=== PATIENT | male | born 1985 | race Caucasian/White ===

== ENCOUNTER 2017-11-26 11:57 | Emergency (ER) | payer MEDICAID, OTHER ==
[~2017-11-26] VITALS: Ht 172.7 cm; Wt 63.5 kg
[~2017-11-26 11:57] MED LIST: ALPR.5T; ALPR.5T PO; CARB100T; CEFP500T4 PO; CLIN300C3 PO; CYCL10TA9 PO; HYDR-2997 PO; HYDR1TAB PO; LTRS15C TOP; NAPR-243 PO; NAPR550T PO; ORPH100T PO; PRD10T PO; PROP1TAB77 PO; QUET150T; QUET150T PO; TRM50T; TRM50T PO
[2017-11-26] MEDS ORDERED: CODE118S2 PO (12:15)
[2017-11-26] MEDS ORDERED: OSLT75C PO (12:15)
--- NOTE | 2017-11-26 12:15 | ED EENT ---
History of Present Illness General Chief Complaint: Pediatric Illness/Problems Stated Complaint: FEVER, CONGESTION Source: patient Exam Limitations: no limitations History of Present Illness Date Seen by Provider: Nov 26, 2017 Time Seen by Provider: 12:11 Initial Comments To ER with a 2 day history of fever, body aches, sore throat, cough. He's been taking some leftover clindamycin from a dental infection thinking that might help. His father tested positive for influenza earlier this past week and he's been around him. Timing/Duration: abrupt Severity: moderate Associated Symptoms: cough, fever, nasal congestion/drainage Allergies and Home Medications Allergies Coded Allergies: Acetaminophen (Unverified Allergy, Mild, 12/20/09) Penicillins (Unverified Allergy, Mild, 04/20/09) Propoxyphene (Unverified Allergy, Mild, 12/20/09) Uncoded Allergies: IVORY SOAP (Allergy, Mild, 04/20/09) DARVOCET (Allergy, 05/25/10) PENICILLIN (Allergy, 05/25/10) Home Medications Clindamycin Hcl 300 Mg Capsule, 1 TAB PO BID, (Reported) Naproxen 500 Mg Tablet, 1 EACH PO TID PRN, #20 Ref 0 FOR PAIN Prescribed by: JOSE ANGEL LARSON on 01/20/11 0044 Review of Systems Constitutional: see HPI, chills, fever, malaise, weakness Eyes: No Symptoms Reported Ears: See HPI Nose: no symptoms reported Mouth: no symptoms reported Throat: no symptoms reported Respiratory: no symptoms reported Cardiovascular: no symptoms reported Musculoskeletal: no symptoms reported Past Yufzmur-Ajqeaj-Qqlfwd Hx Patient Social History Recent Foreign Travel: No Contact w/Someone Who Travel: No Physical Exam General Appearance: WD/WN, no apparent distress Eyes: bilateral eye normal inspection, bilateral eye PERRL, bilateral eye EOMI Ears: bilateral ear auricle normal, bilateral ear canal normal, bilateral ear TM normal Mouth/Throat: normal mouth inspection, other (pharyngeal erythema) Neck: non-tender, full range of motion Cardiovascular: regular rate, rhythm, no murmur Respiratory: normal breath sounds, no respiratory distress, no accessory muscle use Gastrointestinal: normal bowel sounds, non tender, soft Neurologic/Psychiatric: alert, normal mood/affect, oriented x 3 Skin: normal color, warm/dry Departure Impression Impression: Primary Impression: Influenza Disposition: 01 HOME, SELF-CARE Condition: Stable Departure-Patient Inst. Decision time for Depature: 12:13 Referrals: [facility] (PCP/Family) Primary Care Physician Patient Instructions: Flu, Adult (DC) Add. Discharge Instructions: 1. Tylenol and Motrin for fever and chills 2. Symptoms persisted for about 5-7 days with this. Drink plenty of fluids to stay hydrated 3. You may stop the clindamycin as this will not help 4. Tamiflu as directed. This may cause nausea so if it causes intolerable nausea than simply stop taking the Tamiflu. All discharge instructions reviewed with patient and/or family. Voiced understanding. Scripts Promethazine HCl/Codeine (Promethazine-Codeine Syrup) 118 Ml Syrup 7.5 ML PO Q6H Y for COUGH, #120 ML Prov: CARMEN VALDOVINOS APRN 11/26/17 Oseltamivir Phosphate (Tamiflu) 75 Mg Cap 75 MG PO BID, #10 CAP Prov: CARMEN VALDOVINOS APRN 11/26/17 CARMEN VALDOVINOS APRN Nov 26, 2017 12:15
[2017-11-26 12:20] VITALS: BP 118/80
== END 2017-11-26 12:20 | disposition home or self-care (01) ==
LOC: EDUNIT# 11:57 → ER 11:59
DX: J11.1 Influenza due to unidentified influenza virus with other respiratory manifestations (principal); Z88.2 Allergy status to sulfonamides; Z88.6 Allergy status to analgesic agent
CPT/HCPCS: 99282

== ENCOUNTER 2018-08-17 12:06 | Emergency (ER) | payer SELFPAY ==
[~2018-08-17] VITALS: Ht 180.3 cm; Wt 59.0 kg
[~2018-08-17 12:06] MED LIST changes: +CODE118S4 PO; +OSLT75C PO
[2018-08-17] MEDS ORDERED: HYDR-4226 PO ×2 (13:04→13:57)
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
[2018-08-17 14:59] VITALS: BP 129/82
[2018-08-17] MEDS ORDERED: HYDROcodone/APAP 5 MG/325 MG (LORTAB) TAB PO ONE (15:00)
== END 2018-08-17 14:59 | disposition home or self-care (01) ==
LOC: EDUNIT# 12:06 → ER 12:07
DX: S22.42XA Multiple fractures of ribs, left side, initial encounter for closed fracture (principal); F17.210 Nicotine dependence, cigarettes, uncomplicated; Z88.6 Allergy status to analgesic agent; Z88.0 Allergy status to penicillin; Z88.8 Allergy status to other drugs, medicaments and biological substances; Y04.8XXA Assault by other bodily force, initial encounter
CPT/HCPCS: 71101

== ENCOUNTER 2018-08-21 12:12 | Emergency (ER) | payer SELFPAY ==
[~2018-08-21] VITALS: Ht 180.3 cm; Wt 61.2 kg
[~2018-08-21 12:12] MED LIST changes: +HYDR-4226 PO
[2018-08-21] MEDS ORDERED: HYDROcodone/APAP 10 MG/325 MG (LORTAB) TAB PO ONE (13:30)
[2018-08-21] MEDS ORDERED: KETOROLAC 60 MG/2 ML VIAL IM ONE (13:30)
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
[2018-08-21 15:07] VITALS: BP 130/99
== END 2018-08-21 15:07 | disposition home or self-care (01) ==
LOC: EDUNIT# 12:12 → ER 12:13
DX: R07.81 Pleurodynia (principal); F17.210 Nicotine dependence, cigarettes, uncomplicated; Z88.6 Allergy status to analgesic agent; Z88.0 Allergy status to penicillin; Z88.8 Allergy status to other drugs, medicaments and biological substances; Y04.8XXA Assault by other bodily force, initial encounter
CPT/HCPCS: 71101; 96372

== ENCOUNTER 2019-01-30 20:07 | Inpatient (IN) | payer SELFPAY ==
[~2019-01-30] VITALS: Ht 175.3 cm; Wt 66.8 kg
--- NOTE | 2019-01-30 20:07 | NUR ---
LEVEL II TRAUMA PAGED.
--- NOTE | 2019-01-30 20:11 | NUR ---
UPGRADED TO LEVEL 1 TRAUMA. PAGE SENT @ 2010.
[2019-01-30] MEDS ORDERED: fentaNYL INJECTION 100 MCG/2 ML AMP ONE ×2 (20:13→20:25)
[2019-01-30] MEDS ORDERED: NS IV 1000 ML 1,000 ML ONE (20:25)
[2019-01-30] MEDS ORDERED: HOLD METFORMIN - RECEIVED CONTRAST 20 ML VIAL IV SCH (20:30)
[2019-01-30] MEDS ORDERED: IOHEXOL 350 MG/ML 100 ML (OMNIPAQUE 350) VIAL IV ONE (20:30)
[2019-01-30] MEDS ORDERED: TETANUS,DIPTH,PERTUSS P/F (BOOSTRIX) 0.5 ML VIAL IM ONE (20:30)
[2019-01-30 20:32] LABS: HEMOGLOBIN 15.3 G/DL (13.3-17.7); MEAN PLATELET VOLUME 9.7 FL (7.4-10.4); RED CELL DISTRIBUTION WIDTH 12.7 % (10.0-14.5); WHITE BLOOD COUNT 16.1 10^3/uL (4.3-11.0)
[2019-01-30 20:46] LABS: ALANINE AMINOTRANSFERASE 29 U/L (0-55); ALBUMIN 4.6 GM/DL (3.2-4.5); ALKALINE PHOSPHATASE 75 U/L (40-136); BILIRUBIN,DIRECT 0.2 MG/DL (0.0-0.3); BILIRUBIN,INDIRECT 0.4 MG/DL; BILIRUBIN,TOTAL 0.6 MG/DL (0.1-1.0); BUN/CREATININE RATIO 11; CALCIUM 9.7 MG/DL (8.5-10.1); CARBON DIOXIDE 21 MMOL/L (21-32); CHLORIDE 106 MMOL/L (98-107); CREATININE SERUM 1.18 MG/DL (0.60-1.30); GFR ESTIMATED > 60; GLUCOSE 155 MG/DL (70-105); POTASSIUM 3.4 MMOL/L (3.6-5.0); SODIUM 140 MMOL/L (135-145); TOTAL PROTEIN 7.3 GM/DL (6.4-8.2)
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
--- NOTE | 2019-01-30 21:10 | NUR ---
WHILE TRANSFERRING PT FROM CT TABLE TO ED CART, 18G IV TO LT AC PULLED OUT. PRESSURE APPLIED.
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
[2019-01-30] MEDS ORDERED: ONDANSETRON 4 MG/2 ML (SDV) Z0FRAN ONE (21:13)
[2019-01-30] MEDS ORDERED: HYDROmorphone 2 MG/ML VIAL (DILAUDID) IV ONE ×2 (21:15→22:15)
[2019-01-30] MEDS ORDERED: ONDANSETRON 4 MG/2 ML (SDV) Z0FRAN IVP ONE (21:15)
[2019-01-30] MEDS ORDERED: HYDROmorphone 2 MG/ML VIAL (DILAUDID) ONE (21:15)
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
[2019-01-30] MEDS ORDERED: BACITRACIN OINTMENT 28 GM TUBE ONE (21:43)
[2019-01-30] MEDS: BACITRACIN OINTMENT 28 GM TUBE TOP SCH (21:50)
--- NOTE | 2019-01-30 21:50 | NUR ---
MULTIPLE ABRASIONS CLEANED WITH CHLORHEXIDINE AND NORMAL SALINE. TOPICAL BACITRACIN APPLIED.
--- NOTE | 2019-01-30 22:00 | NUR ---
CERVICAL COLLAR CLEARED BY DR. BELL.
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
[2019-01-30] MEDS ORDERED: LIDOCAINE/EPI 2% 1:100,00 (XYLOCAINE) 20 ML VIAL ONE (22:27)
[2019-01-30] MEDS ORDERED: CLINDAMYCIN 900 MG/50 ML IVPB 50 ML IV ONE (23:00)
[2019-01-31] VITALS (27 sets, daily range): BP systolic 109–136; BP diastolic 77–96
[2019-01-31] MEDS ORDERED: morphine INJ 10 MG/ML 1ML (SYR OR VIAL) ONE (00:01)
[2019-01-31] MEDS: morphine INJ 10 MG/ML 1ML (SYR OR VIAL) IVP PRN ×7 (00:15→19:54)
[2019-01-31] MEDS ORDERED: morphine INJ 4 MG/ML 1 ML (VIAL/SYRINGE) IV PRN (00:30)
[2019-01-31] MEDS: NS IV 1000 ML 1,000 ML IV SCH ×4 (02:13→22:34)
[2019-01-31 03:53] LABS: BASOPHILS % (AUTO) 0 % (0-10); EOSINOPHILS % (AUTO) 0 % (0-10); HEMATOCRIT 42 % (40-54); HEMOGLOBIN 14.9 G/DL (13.3-17.7); LYMPHOCYTES # (AUTO) 0.9 X 10^3 (1.0-4.0); LYMPHOCYTES % (AUTO) 5 % (12-44); MEAN CORPUSCULAR HEMOGLOBIN 31 PG (25-34); MEAN CORPUSCULAR HGB CONC 35 G/DL (32-36); MEAN CORPUSCULAR VOLUME 89 FL (80-99); MEAN PLATELET VOLUME 10.4 FL (7.4-10.4); MONOCYTES # (AUTO) 1.9 X 10^3 (0.0-1.0); MONOCYTES % (AUTO) 10 % (0-12); NEUTROPHILS % (AUTO) 85 % (42-75); PLATELET COUNT 197 10^3/uL (130-400); RED CELL DISTRIBUTION WIDTH 12.8 % (10.0-14.5); WHITE BLOOD COUNT 18.9 10^3/uL (4.3-11.0)
[2019-01-31 04:12] LABS: BUN/CREATININE RATIO 16; CALCIUM 9.2 MG/DL (8.5-10.1); CARBON DIOXIDE 20 MMOL/L (21-32); CHLORIDE 109 MMOL/L (98-107); GFR ESTIMATED > 60; GLUCOSE 100 MG/DL (70-105); PHOSPHORUS 3.6 MG/DL (2.3-4.7); POTASSIUM 4.4 MMOL/L (3.6-5.0); SODIUM 138 MMOL/L (135-145)
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
[2019-01-31] MEDS ORDERED: RT-ALBUTEROL/IPRATROPIUM 3 ML (DUONEB) VIAL ONE (06:11)
[2019-01-31] MEDS: MAGNESIUM 1 GM/100 ML IVPB 100 ML IV SCH (06:42)
[2019-01-31] MEDS: KCL 20 MEQ TAB (K-DUR) PO SCH (06:42)
[2019-01-31] MEDS: POTASSIUM CL 10MEQ/50ML IVPB 50 ML IV SCH (06:42)
[2019-01-31] MEDS: RT-ALBUTEROL/IPRATROPIUM 3 ML (DUONEB) VIAL INH SCH ×4 (06:45→18:30)
[2019-01-31] MEDS ORDERED: NS IV 1000 ML 1,000 ML IV ONE (06:45)
[2019-01-31] MEDS: CLINDAMYCIN 900 MG/50 ML IVPB 50 ML IV SCH ×3 (06:55→23:15)
[2019-01-31] MEDS ORDERED: CLINDAMYCIN 900 MG/6ML (CLEOCIN) VIAL IV SCH (07:00)
--- NOTE | 2019-01-31 08:46 | Diagnostic Imaging Report ---
EXAMINATION: Portable semierect AP chest at 0034 hours. INDICATION: Chest pain. FINDINGS: The heart size is within normal limits and stable when compared to the prior exam of 01/30/2019. The previous study did show multiple rib fractures on the right, a slightly displaced fracture of the right clavicle, and a fracture extending through the lateral margin of the scapula just inferior to the glenoid. Those injuries are again evident on this study and no different. In the interval since the previous exam, however, a vague area of increased density has developed in the right midlung. Most likely, this is secondary to a pulmonary contusion. There is still no sign of a pneumothorax on the right. The left lung remains clear. The mediastinum is not widened. The osseous structures are otherwise intact. The stomach is now distended by gas. IMPRESSION: 1. In the interval since the prior study, a vague area of increased density has developed in the right mid lung. Most likely, this is due to a pulmonary contusion. There is still no pneumothorax identified. 2. No other acute cardiopulmonary abnormality is appreciated. 3. The injuries to the bony thorax, scapula, and clavicle on the right are again noted. Dictated by: Dictated on workstation # [id number]
--- NOTE | 2019-01-31 08:51 | Diagnostic Imaging Report ---
INDICATION: Trauma. FINDINGS: The patchy airspace opacities in the right upper lung have improved from the prior exam. Fractures of the right scapula and mid shaft clavicle are redemonstrated. The rib fracture deformity shows no obvious change. There is no pneumothorax and no substantial pleural fluid is apparent. IMPRESSION: Improvement in airspace opacity in the right lung suggesting partial clearing of contusions. The right-sided fracture deformity shows no change. No appreciable pneumothorax. No adverse development. Dictated by: Dictated on workstation # [id number]
[2019-01-31] MEDS ORDERED: RT-ALBUTEROL/IPRATROPIUM 3 ML (DUONEB) VIAL INH SCH (09:00)
[2019-01-31 09:58] LABS: BILIRUBIN,URINE NEGATIVE (NEGATIVE); CLARITY,URINE CLEAR; COLOR,URINE YELLOW; GLUCOSE, URINE (UA) NEGATIVE (NEGATIVE); KETONES,URINE 1+ (NEGATIVE); LEUKOCYTE ESTERASE ,URINE NEGATIVE (NEGATIVE); NITRITE,URINE NEGATIVE (NEGATIVE); PH,URINE 5 (5-9); PROTEIN,URINE 2+ (NEGATIVE); UROBILINOGEN,URINE NORMAL (NORMAL)
[2019-01-31 10:14] LABS: RBC,URINE RARE /HPF
[2019-01-31 10:15] LABS: BACTERIA,URINE NEGATIVE /HPF; SQUAMOUS EPITHELIAL CELL,UR RARE /HPF
[2019-01-31 10:17] LABS: AMPHETAMINE SCREEN, URINE POSITIVE (NEGATIVE); BARBITURATE SCREEN URINE NEGATIVE (NEGATIVE); BENZODIAZEPINES SCREEN URINE NEGATIVE (NEGATIVE); CANNABINOID SCREEN, URINE POSITIVE (NEGATIVE); COCAINE SCREEN URINE NEGATIVE (NEGATIVE); METHADONE STAT NEGATIVE (NEGATIVE); METHAMPHETAMINE SCREEN URINE S POSITIVE (NEGATIVE); OPIATE SCREEN URINE POSITIVE (NEGATIVE); OXYCODONE STAT NEGATIVE (NEGATIVE); PROPOXYPHENE STAT NEGATIVE (NEGATIVE); TRICYCLIC ANTIDEPRESSANTS SCRE NEGATIVE (NEGATIVE)
[2019-01-31] MEDS: ONDANSETRON 4 MG/2 ML (SDV) Z0FRAN IV PRN (11:01)
--- NOTE | 2019-01-31 14:18 | NUR ---
Bacitracin ointment applied to abrasions on face, right shoulder, right flank and back of head laceration.
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
[2019-01-31] MEDS: BACITRACIN OINTMENT 28 GM TUBE TOP SCH (22:34)
[2019-02-01] VITALS (15 sets, daily range): BP systolic 102–139; BP diastolic 75–90
[2019-02-01] MEDS: ONDANSETRON 4 MG/2 ML (SDV) Z0FRAN IV PRN ×3 (00:50→23:52)
[2019-02-01] MEDS: morphine INJ 10 MG/ML 1ML (SYR OR VIAL) IVP PRN ×4 (00:51→17:22)
[2019-02-01] MEDS: NS IV 1000 ML 1,000 ML IV SCH ×3 (00:52→17:22)
[2019-02-01 03:07] LABS: BASOPHILS % (AUTO) 0 % (0-10); EOSINOPHILS # (AUTO) 0.1 10^3/uL (0.0-0.3); EOSINOPHILS % (AUTO) 1 % (0-10); HEMATOCRIT 40 % (40-54); HEMOGLOBIN 13.4 G/DL (13.3-17.7); LYMPHOCYTES # (AUTO) 0.7 X 10^3 (1.0-4.0); LYMPHOCYTES % (AUTO) 6 % (12-44); MEAN CORPUSCULAR HEMOGLOBIN 31 PG (25-34); MEAN CORPUSCULAR HGB CONC 34 G/DL (32-36); MEAN CORPUSCULAR VOLUME 91 FL (80-99); MEAN PLATELET VOLUME 9.8 FL (7.4-10.4); MONOCYTES % (AUTO) 9 % (0-12); NEUTROPHILS # (AUTO) 9.4 X 10^3 (1.8-7.8); NEUTROPHILS % (AUTO) 84 % (42-75); PLATELET COUNT 190 10^3/uL (130-400); WHITE BLOOD COUNT 11.3 10^3/uL (4.3-11.0)
[2019-02-01 03:27] LABS: BUN/CREATININE RATIO 9; CALCIUM 8.3 MG/DL (8.5-10.1); CARBON DIOXIDE 21 MMOL/L (21-32); CHLORIDE 108 MMOL/L (98-107); CREATININE SERUM 0.76 MG/DL (0.60-1.30); GFR ESTIMATED > 60; GLUCOSE 118 MG/DL (70-105); MAGNESIUM 1.9 MG/DL (1.8-2.4); PHOSPHORUS 2.2 MG/DL (2.3-4.7); POTASSIUM 3.7 MMOL/L (3.6-5.0); SODIUM 135 MMOL/L (135-145)
[2019-02-01] MEDS: POTASSIUM CL 10MEQ/50ML IVPB 50 ML IV SCH (05:38)
[2019-02-01] MEDS: MAGNESIUM 1 GM/100 ML IVPB 100 ML IV SCH (05:39)
[2019-02-01] MEDS: KCL 20 MEQ TAB (K-DUR) PO SCH (05:39)
[2019-02-01] MEDS: CLINDAMYCIN 900 MG/50 ML IVPB 50 ML IV SCH ×3 (05:48→23:53)
[2019-02-01] MEDS: RT-ALBUTEROL/IPRATROPIUM 3 ML (DUONEB) VIAL INH SCH ×4 (06:33→18:21)
--- NOTE | 2019-02-01 07:56 | NUR ---
Spoke with pt who states that he is not allergic to Tylenol. Pt states he just took tylenol a couple of days ago.
[2019-02-01] MEDS: BACITRACIN OINTMENT 28 GM TUBE TOP SCH ×2 (08:04→21:51)
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
--- NOTE | 2019-02-01 10:30 | NUR ---
REPORT RECEIVED FROM LUCI JERONIMO FROM ICU. PATIENT TRANSFERRED DOWN TO ROOM VIA WHEELCHAIR, AND STAFF. PATIENT ORIENTED TO ROOM, CALL LIGHT WITHIN REACH. WILL CONTINUE TO MONITOR.
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
[2019-02-01] MEDS: HYDROcodone/APAP 5 MG/325 MG (LORTAB) TAB PO PRN ×2 (11:25→20:53)
--- NOTE | 2019-02-01 11:33 | Diagnostic Imaging Report ---
INDICATION: Dyspnea COMPARISON: 01/31/2019 FINDINGS: A patchy somewhat nodular airspace opacity mid right lung laterally showed further improvements likely resorption of blood products from a posttraumatic contusive sequelae. Fractures of the right clavicle, scapula and right ribs unchanged. No pneumothorax or substantial pleural fluid. IMPRESSION: Likely further resorption of contusive infiltrates in the right lung. Unchanged right-sided fracture deformities. No pneumothorax. No adverse development. Dictated by: Dictated on workstation # [id number]
[2019-02-02] VITALS: BP 121/74
--- NOTE | 2019-02-02 01:25 | NUR ---
THIS RN CALLED DR. BLAKE IN REGARDS TO THE PT COMPLAINING OF NAUSEA AND VOMITING AFTER BEING GIVEN ORDERED ZOFRAN 4 MG IV. ORDERS RECEIVED FOR COMPAZINE 10 MG IV PRN Q6H. ORDERS READ BACK AND VERIFIED.
[2019-02-02] MEDS ORDERED: PROCHLORPERAZINE 10 MG/2ML INJ (COMPAZINE) IV PRN (01:30)
[2019-02-02] MEDS: NS IV 1000 ML 1,000 ML IV SCH ×3 (04:00→16:47)
[2019-02-02 04:36] LABS: BASOPHILS % (AUTO) 0 % (0-10); EOSINOPHILS # (AUTO) 0.1 10^3/uL (0.0-0.3); EOSINOPHILS % (AUTO) 1 % (0-10); HEMATOCRIT 39 % (40-54); HEMOGLOBIN 13.3 G/DL (13.3-17.7); LYMPHOCYTES # (AUTO) 0.9 X 10^3 (1.0-4.0); LYMPHOCYTES % (AUTO) 10 % (12-44); MEAN CORPUSCULAR HEMOGLOBIN 31 PG (25-34); MEAN CORPUSCULAR HGB CONC 35 G/DL (32-36); MEAN CORPUSCULAR VOLUME 90 FL (80-99); MEAN PLATELET VOLUME 10.3 FL (7.4-10.4); MONOCYTES # (AUTO) 0.8 X 10^3 (0.0-1.0); MONOCYTES % (AUTO) 8 % (0-12); NEUTROPHILS % (AUTO) 82 % (42-75); PLATELET COUNT 191 10^3/uL (130-400); RED CELL DISTRIBUTION WIDTH 12.8 % (10.0-14.5); WHITE BLOOD COUNT 9.8 10^3/uL (4.3-11.0)
[2019-02-02 04:41] VITALS: BP 123/86
[2019-02-02 04:58] LABS: BUN/CREATININE RATIO 5; CALCIUM 8.9 MG/DL (8.5-10.1); CARBON DIOXIDE 20 MMOL/L (21-32); CHLORIDE 107 MMOL/L (98-107); CREATININE SERUM 0.76 MG/DL (0.60-1.30); GFR ESTIMATED > 60; GLUCOSE 105 MG/DL (70-105); MAGNESIUM 1.7 MG/DL (1.8-2.4); PHOSPHORUS 2.5 MG/DL (2.3-4.7); POTASSIUM 3.7 MMOL/L (3.6-5.0); SODIUM 139 MMOL/L (135-145)
[2019-02-02] MEDS: morphine INJ 10 MG/ML 1ML (SYR OR VIAL) IVP PRN (05:07)
[2019-02-02] MEDS: HYDROcodone/APAP 5 MG/325 MG (LORTAB) TAB PO PRN ×2 (06:27→10:40)
[2019-02-02] MEDS: RT-ALBUTEROL/IPRATROPIUM 3 ML (DUONEB) VIAL INH SCH ×2 (06:43→11:41)
[2019-02-02 08:00] VITALS: BP 121/77
[2019-02-02] MEDS ORDERED: MAGNESIUM 1 GM/100 ML IVPB 100 ML IV ONE (08:00)
[2019-02-02] MEDS: CLINDAMYCIN 900 MG/50 ML IVPB 50 ML IV SCH (08:22)
[2019-02-02] MEDS: BACITRACIN OINTMENT 28 GM TUBE TOP SCH (09:19)
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
[2019-02-02 12:00] VITALS: BP 137/92
--- NOTE | 2019-02-02 12:22 | NUR ---
CM/SS spoke with Financial Services about coming to talk to this patient.
--- NOTE | 2019-02-02 12:43 | NUR ---
NOTE THAT FERNANDA EVANS WAS RECALLED AND GOT ORDER TO INCREASE HYDROCODONE TO 1-2 TAB PO PRN Q6H PAIN -- THIS RN ASKED IF HE WANTED THIS RN TO GIVE ADD'L ONE TAB AT THIS TIME AND DR EVANS SAID NO GIVE WHEN DUE
[2019-02-02] MEDS ORDERED: HYDROcodone/APAP 5 MG/325 MG (LORTAB) TAB PO PRN (12:45)
[2019-02-02] MEDS ORDERED: DOCU-143 PO (13:17)
[2019-02-02] MEDS ORDERED: ACHD5005 PO (13:17)
--- NOTE | 2019-02-02 13:20 | Discharge Inst-Simple/Standard ---
Discharge Inst-Standard Discharge Medications New, Converted or Re-Newed RX: RX on Chart Patient Instructions/Follow Up Plan of Care/Instructions/FU: [address] Delgado follow up appointment. [address] Mendoza appointment. Wear sling for right arm. Activity as Tolerated: No Discharge Diet: Regular Diet Other Inst to Patient Follow up Appt: Make appointment for [address] Delgado and Dr. Mendoza Instructions: No lifting greater than 10 pounds. No strenuous activity. Use incentive spirometer at home as directed. No Smoking Skin/Wound Care: Keep wounds clean and dry. Symptoms to Report: Appetite Changes, Extremity Discoloration, Numbness/Tingling, Swelling Increased , Bleeding Excessive, Eyesight Changes, Pain Increased, Urine Color Change, Constipation(Persistent), Fever over 101 degree F, Pain/Pressure in chest, Urinating Difficulty, Cough Up/Vomit Blood, Heart Beat Irreg/Pounding, Pain/ Pressure in jaw, Vaginal Bleeding Increase, Cramps in feet or legs, Lightheadedness, Pain/Pressure in shoulder, Diarrhea(Persistent), Memory Changes Suddenly, Questions/Concerns, Weight gain consecutive days, Dizziness/ Fainting, Nausea/Vomiting, Shortness of Breath, Weight gain over 2 pounds If questions or concerns contact your physician Or seek help at emergency department. ZOHAIB DELGADO DO Feb 02, 2019 13:20
--- NOTE | 2019-02-02 15:22 | NUR ---
CM/SS spoke with pharmacy about possible prescription assistance. Patient is only discharging with a pain medication and colace, pharmacy nor [facility]ALS can offer assistance with narcotics. Patient did not know of any other discharge needs.
[2019-02-02 16:20] VITALS: BP 137/92
== END 2019-02-02 16:20 | disposition home or self-care (01) | DRG 957 ==
LOC: EDUNIT# 20:07 → ER 20:08 → ICU 21:29 → 4TH 02-01 13:58
PROVIDERS: ADMIT Surgery; ATTEND Surgery
PROC: 0JQ00ZZ Repair Scalp Subcutaneous Tissue and Fascia, Open Approach (ICD-10-PCS; principal; 2019-01-30)
PROC: 0JC00ZZ Extirpation of Matter from Scalp Subcutaneous Tissue and Fascia, Open Approach (ICD-10-PCS; 2019-01-30)
DX: S27.321A Contusion of lung, unilateral, initial encounter (principal); S27.0XXA Traumatic pneumothorax, initial encounter; S06.9X9A Unspecified intracranial injury with loss of consciousness of unspecified duration, initial encounter; S22.41XA Multiple fractures of ribs, right side, initial encounter for closed fracture; J69.0 Pneumonitis due to inhalation of food and vomit; E87.2 Acidosis; S42.101A Fracture of unspecified part of scapula, right shoulder, initial encounter for closed fracture; S42.021A Displaced fracture of shaft of right clavicle, initial encounter for closed fracture; S01.01XA Laceration without foreign body of scalp, initial encounter; S70.211A Abrasion, right hip, initial encounter; S30.811A Abrasion of abdominal wall, initial encounter; S50.811A Abrasion of right forearm, initial encounter; S50.812A Abrasion of left forearm, initial encounter; S60.511A Abrasion of right hand, initial encounter; S60.512A Abrasion of left hand, initial encounter; F15.90 Other stimulant use, unspecified, uncomplicated; F17.210 Nicotine dependence, cigarettes, uncomplicated; F12.90 Cannabis use, unspecified, uncomplicated; V29.9XXA Motorcycle rider (driver) (passenger) injured in unspecified traffic accident, initial encounter; Z23 Encounter for immunization
CPT/HCPCS: 12034; 36415; 70450; 70486; 71045; 71260; 72125; 72170; 74177; 80048; 80076; 80306; 80307; 80320; 81000; 83605; 83735; 84100; 85025; 85027; 86850; 86900; 86901; 90471; 90715; 93041; 94640; 94664; 96361; 96365; 96375; 96376

== ENCOUNTER 2019-02-10 10:01 | Emergency (ER) | payer SELFPAY ==
[~2019-02-10] VITALS: Ht 180.3 cm; Wt 59.0 kg
[~2019-02-10 10:01] MED LIST changes: +ACHD5005 PO; +DOCU-143 PO
[2019-02-10] MEDS ORDERED: HYDROcodone/APAP 5 MG/325 MG (LORTAB) TAB PO ONE (10:30)
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
[2019-02-10] MEDS ORDERED: HYDR-3812 PO (11:14)
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
[2019-02-10 11:21] VITALS: BP 133/90
--- NOTE | 2019-02-10 11:23 | NUR ---
SUTURES IN SCALP REMOVED BY DR DAN
== END 2019-02-10 11:21 | disposition home or self-care (01) ==
LOC: EDUNIT# 10:01 → ER 10:02
DX: S42.021D Displaced fracture of shaft of right clavicle, subsequent encounter for fracture with routine healing (principal); S42.101D Fracture of unspecified part of scapula, right shoulder, subsequent encounter for fracture with routine healing; S22.41XD Multiple fractures of ribs, right side, subsequent encounter for fracture with routine healing; S27.321D Contusion of lung, unilateral, subsequent encounter; F15.10 Other stimulant abuse, uncomplicated; F12.10 Cannabis abuse, uncomplicated; F17.210 Nicotine dependence, cigarettes, uncomplicated; Z88.0 Allergy status to penicillin; Z88.8 Allergy status to other drugs, medicaments and biological substances; V29.9XXD Motorcycle rider (driver) (passenger) injured in unspecified traffic accident, subsequent encounter
CPT/HCPCS: 71045

== ENCOUNTER 2019-02-12 11:52 | Emergency (ER) | payer SELFPAY ==
[~2019-02-12] VITALS: Ht 177.8 cm; Wt 63.5 kg
[~2019-02-12 11:52] MED LIST changes: +HYDR-3812 PO
--- NOTE | 2019-02-12 12:36 | Diagnostic Imaging Report ---
PROCEDURE: CT head without contrast. TECHNIQUE: Multiple contiguous axial images were obtained through the brain without the use of intravenous contrast. Auto Exposure Controls were utilized during the CT exam to meet ALARA standards for radiation dose reduction. INDICATION: Dizziness. COMPARISON: Correlation is made with prior head CT from 01/30/2019. FINDINGS: The ventricles and sulci are stable in appearance. No sulcal effacement, midline shift, or hemorrhage is detected. Cisterns are patent. Visualized paranasal sinuses are clear. IMPRESSION: No acute intracranial process is detected. Dictated by: Dictated on workstation # [id number]
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
[2019-02-12 13:10] VITALS: BP 122/81
== END 2019-02-12 13:10 | disposition home or self-care (01) ==
LOC: EDUNIT# 11:52 → ER 11:54
DX: S06.0X0D Concussion without loss of consciousness, subsequent encounter (principal); F15.10 Other stimulant abuse, uncomplicated; F12.10 Cannabis abuse, uncomplicated; Z77.22 Contact with and (suspected) exposure to environmental tobacco smoke (acute) (chronic); Z88.0 Allergy status to penicillin; Z88.8 Allergy status to other drugs, medicaments and biological substances; V29.9XXD Motorcycle rider (driver) (passenger) injured in unspecified traffic accident, subsequent encounter
CPT/HCPCS: 70450

== ENCOUNTER 2019-02-23 20:10 | Emergency (ER) | payer SELFPAY ==
[~2019-02-23] VITALS: Ht 177.8 cm; Wt 61.2 kg
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
[2019-02-23] MEDS ORDERED: RT-ALBUTEROL/IPRATROPIUM 3 ML (DUONEB) VIAL INH ONE (20:30)
[2019-02-23] MEDS ORDERED: AZIT250T12 PO (20:42)
[2019-02-23] MEDS ORDERED: HYDR-4226 PO (20:42)
--- NOTE | 2019-02-23 20:43 | Diagnostic Imaging Report ---
INDICATION: Cough PA and lateral views of the chest were obtained. Comparison is made to the study of 02/10/2019. Heart size and pulmonary vascularity are within normal limits. There is no evidence of pneumothorax or consolidation. There is right pleural thickening related to nonacute rib fractures. No pneumothorax is identified. There is mild callus about the mildly displaced right clavicle fracture. Right scapular fracture is noted as well. IMPRESSION: Multiple subacute fractures involving right clavicle, scapula and right ribs have shown interval progression of callus and pleural thickening. Otherwise, no acute abnormality is seen. Dictated by: Dictated on workstation # [id number]
[2019-02-23] MEDS ORDERED: HYDROcodone/APAP 5 MG/325 MG (LORTAB) TAB PO ONE (20:45)
[2019-02-23] MEDS ORDERED: AZITHROMYCIN 250 MG TAB (ZITHROMAX) PO SCH (20:45)
[2019-02-23 20:55] VITALS: BP 104/80
== END 2019-02-23 20:55 | disposition home or self-care (01) ==
LOC: EDUNIT# 20:10 → ER 20:12
DX: S42.101D Fracture of unspecified part of scapula, right shoulder, subsequent encounter for fracture with routine healing (principal); S22.41XD Multiple fractures of ribs, right side, subsequent encounter for fracture with routine healing; S27.0XXD Traumatic pneumothorax, subsequent encounter; J40 Bronchitis, not specified as acute or chronic; Z88.0 Allergy status to penicillin; Z88.2 Allergy status to sulfonamides; Z88.8 Allergy status to other drugs, medicaments and biological substances; Z77.22 Contact with and (suspected) exposure to environmental tobacco smoke (acute) (chronic); V86.0 Driver of special all-terrain or other off-road motor vehicle injured in traffic accident
CPT/HCPCS: 71046; 94640

== ENCOUNTER → 2019-02-27 | Outpatient (CLI) | payer SELFPAY ==
[~2019-02-27] MED LIST changes: +AZIT250T12 PO
== END ==
LOC: ORTHO 09:48
PROVIDERS: ATTEND Orthopaedic Surgery
DX: Z53.9 Procedure and treatment not carried out, unspecified reason (principal)
CPT/HCPCS: 99203

== ENCOUNTER 2019-05-18 18:44 | Emergency (ER) | payer SELFPAY ==
[~2019-05-18] VITALS: Ht 180.3 cm; Wt 61.2 kg
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
[2019-05-18] MEDS ORDERED: BSS 15 ML ONE (19:18)
[2019-05-18] MEDS ORDERED: FLUORESCEIN (FLUOR-I-STRIPS) 1 MG STRP ONE (19:18)
[2019-05-18] MEDS ORDERED: TETRACAINE 0.5% OPHTH SOLN 4 ML BTL (SINGLE DOSE ONLY) ONE (19:18)
[2019-05-18] MEDS ORDERED: RX-GENTAMICIN 0.3% OP OINT 3.5 GM TUBE OP STA (19:40)
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
[2019-05-18] MEDS ORDERED: GENTAMICIN 0.3% OPHTH SOLN 5 ML ONE (19:51)
[2019-05-18] MEDS ORDERED: RX-GENTAMICIN SULFATE 0.3% OP 5 ML BTL OS STA (20:01)
[2019-05-18 20:10] VITALS: BP 135/91
== END 2019-05-18 20:10 | disposition home or self-care (01) ==
LOC: EDUNIT# 18:44 → ER 18:46
DX: T15.02XA Foreign body in cornea, left eye, initial encounter (principal); F15.10 Other stimulant abuse, uncomplicated; F12.10 Cannabis abuse, uncomplicated; F17.210 Nicotine dependence, cigarettes, uncomplicated; Z88.0 Allergy status to penicillin; Z88.2 Allergy status to sulfonamides; Z88.8 Allergy status to other drugs, medicaments and biological substances
CPT/HCPCS: 99283

== ENCOUNTER 2019-05-19 17:58 | Emergency (ER) | payer SELFPAY ==
[~2019-05-19] VITALS: Ht 180.3 cm; Wt 61.3 kg
[2019-05-19] MEDS ORDERED: FLUORESCEIN (FLUOR-I-STRIPS) 1 MG STRP ONE (18:17)
[2019-05-19] MEDS ORDERED: TETRACAINE 0.5% OPHTH SOLN 4 ML BTL (SINGLE DOSE ONLY) ONE (18:17)
[2019-05-19] MEDS ORDERED: BSS 15 ML ONE (18:18)
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
[2019-05-19 18:58] VITALS: BP 131/71
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
== END 2019-05-19 18:57 | disposition home or self-care (01) ==
LOC: EDUNIT# 17:58 → ER 17:59
DX: T15.02XA Foreign body in cornea, left eye, initial encounter (principal); F17.210 Nicotine dependence, cigarettes, uncomplicated; F15.10 Other stimulant abuse, uncomplicated; F12.10 Cannabis abuse, uncomplicated; Z88.0 Allergy status to penicillin; Z88.2 Allergy status to sulfonamides; Z88.5 Allergy status to narcotic agent
CPT/HCPCS: 99281

== ENCOUNTER 2019-06-04 20:50 | Emergency (ER) | payer SELFPAY ==
[~2019-06-04] VITALS: Ht 180.3 cm; Wt 63.6 kg
[2019-06-04] MEDS ORDERED: SULF1TAB35 PO (22:14)
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
[2019-06-04] MEDS ORDERED: HYDROcodone/APAP 5 MG/325 MG (LORTAB) TAB PO ONE (22:15)
[2019-06-04] MEDS ORDERED: CEPHALEXIN 250 MG (KEFLEX) CAP PO ONE (22:15)
[2019-06-04] MEDS ORDERED: CEPH-507 PO (22:17)
[2019-06-04] MEDS ORDERED: MUPIROCIN 2% OINT 22 GM (BACTROBAN) TUBE ONE (22:29)
[2019-06-04 22:35] VITALS: BP 141/99
[2019-06-05] MEDS ORDERED: MUPIROCIN 2% OINT 22 GM (BACTROBAN) TUBE NSEACH SCH (09:00)
== END 2019-06-04 22:35 | disposition home or self-care (01) ==
LOC: EDUNIT# 20:50 → ER 20:51
DX: J34.0 Abscess, furuncle and carbuncle of nose (principal); Z88.0 Allergy status to penicillin; Z88.2 Allergy status to sulfonamides; Z77.22 Contact with and (suspected) exposure to environmental tobacco smoke (acute) (chronic)
CPT/HCPCS: 99284

== ENCOUNTER 2019-06-05 18:02 | Observation (INO) | payer SELFPAY ==
[~2019-06-05] VITALS: Ht 177.8 cm; Wt 62.8 kg
[~2019-06-05 18:02] MED LIST changes: +CEPH-507 PO; +SULF1TAB35 PO
--- NOTE | 2019-06-05 18:13 | NUR ---
AMB TO FT 1
--- NOTE | 2019-06-05 18:18 | NUR ---
WARM BLANKET GIVEN TO PATIENT.
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
[2019-06-05] MEDS ORDERED: cefTRIAXone FOR IV USE 2,000 MG in WATER (STERILE) FOR INJECTION 20 ML IV ONE (19:00)
[2019-06-05] MEDS ORDERED: fentaNYL INJECTION 100 MCG/2 ML AMP IVP ONE (19:00)
[2019-06-05] MEDS ORDERED: VANCOMYCIN INJECTION 1,000 MG in NS (IVPB) 250 ML IV SCH (19:00)
[2019-06-05 19:06] LABS: BASOPHILS % (AUTO) 0 % (0-10); EOSINOPHILS # (AUTO) 0.1 10^3/uL (0.0-0.3); EOSINOPHILS % (AUTO) 0 % (0-10); HEMATOCRIT 45 % (40-54); HEMOGLOBIN 15.9 G/DL (13.3-17.7); LYMPHOCYTES # (AUTO) 1.8 X 10^3 (1.0-4.0); LYMPHOCYTES % (AUTO) 15 % (12-44); MEAN CORPUSCULAR HEMOGLOBIN 31 PG (25-34); MEAN CORPUSCULAR HGB CONC 35 G/DL (32-36); MEAN CORPUSCULAR VOLUME 88 FL (80-99); MONOCYTES # (AUTO) 1.4 X 10^3 (0.0-1.0); MONOCYTES % (AUTO) 11 % (0-12); NEUTROPHILS # (AUTO) 9.2 X 10^3 (1.8-7.8); NEUTROPHILS % (AUTO) 74 % (42-75); PLATELET COUNT 232 10^3/uL (130-400); WHITE BLOOD COUNT 12.5 10^3/uL (4.3-11.0)
[2019-06-05] MEDS ORDERED: VANCOMYCIN 1000 MG/VIAL ONE ×2 (19:24→19:31)
[2019-06-05] MEDS ORDERED: NS (IVPB) 250 ML ONE (19:24)
[2019-06-05] MEDS ORDERED: NS (IVPB) 0 ML ONE (19:29)
[2019-06-05] MEDS: NS IV 1000 ML 1,000 ML IV SCH ×3 (19:49→22:11)
[2019-06-05] MEDS ORDERED: DOCUSATE SODIUM 100 MG (COLACE) CAP PO PRN (21:30)
[2019-06-05] MEDS ORDERED: MELATONIN 3 MG TABLET PO PRN (21:30)
[2019-06-05] MEDS ORDERED: diphenhydrAMINE 25 MG TAB (BENADRYL) PO PRN (21:30)
[2019-06-05] MEDS ORDERED: ACETAMINOPHEN 500 MG TAB (TYLENOL) PO PRN (21:30)
[2019-06-05] MEDS ORDERED: ONDANSETRON 4 MG (ZOFRAN) ORAL DISSOLVE TAB PO PRN (21:30)
[2019-06-05] MEDS ORDERED: SENNA W/DOCUSATE (SENOKOT S) TABLET PO PRN (21:30)
[2019-06-05] MEDS ORDERED: ALPRAZolam 0.25 MG (XANAX) TAB PO PRN (21:30)
[2019-06-05] MEDS ORDERED: fentaNYL INJECTION 100 MCG/2 ML AMP IVP PRN (21:30)
[2019-06-05] MEDS ORDERED: IBUPROFEN TABLET 200 MG TAB PO PRN (21:30)
[2019-06-05] MEDS ORDERED: CALCIUM CARBONATE 500 MG (TUMS) TAB.CHEW PO PRN (21:30)
[2019-06-05] MEDS ORDERED: LOPERAMIDE 2 MG (IMODIUM) TABLET PO PRN (21:30)
[2019-06-05] MEDS ORDERED: ONDANSETRON 4 MG/2 ML (SDV) Z0FRAN IVP PRN (21:30)
--- NOTE | 2019-06-05 21:35 | NUR ---
REPORT RECEIVED FROM PAN HELPER.
[2019-06-05 22:03] VITALS: BP 133/85
--- NOTE | 2019-06-05 22:03 | NUR ---
Pt admitted to room 416-1, with an admitting diagnosis of facial cellulitis - nose, on 06/05/19 from [place] via wheelchair, accompanied by ARLETTE Cooney. KERRIE GUNTER introduced to surroundings, call light, bed controls, phone, TV, temperature control, lights, meal times, smoking policy, visitor policy, side rail policy, bathrooms and showers. Patient Rights given to patient in the handbook. KERRIE GUNTER verbalizes understanding that [facility] is not responsible for the loss or damage to any personal effects or valuables that are kept in the patients posession during their hospitalization.
[2019-06-05] MEDS ORDERED: NICOTINE 21 MG (NICODERM) PATCH TD PRN (22:15)
[2019-06-05] MEDS: HYDROcodone/APAP 5 MG/325 MG (LORTAB) TAB PO PRN (23:14)
[2019-06-05 23:36] VITALS: BP 123/75
[2019-06-06] MEDS: HYDROcodone/APAP 5 MG/325 MG (LORTAB) TAB PO PRN ×2 (04:35→09:40)
[2019-06-06 04:41] VITALS: BP 142/92
[2019-06-06 05:46] LABS: BASOPHILS % (AUTO) 0 % (0-10); EOSINOPHILS # (AUTO) 0.2 10^3/uL (0.0-0.3); EOSINOPHILS % (AUTO) 2 % (0-10); HEMATOCRIT 40 % (40-54); HEMOGLOBIN 13.8 G/DL (13.3-17.7); LYMPHOCYTES # (AUTO) 2.2 X 10^3 (1.0-4.0); LYMPHOCYTES % (AUTO) 22 % (12-44); MEAN CORPUSCULAR HEMOGLOBIN 31 PG (25-34); MEAN CORPUSCULAR HGB CONC 34 G/DL (32-36); MEAN CORPUSCULAR VOLUME 90 FL (80-99); MEAN PLATELET VOLUME 10.1 FL (7.4-10.4); MONOCYTES # (AUTO) 1.2 X 10^3 (0.0-1.0); MONOCYTES % (AUTO) 12 % (0-12); NEUTROPHILS # (AUTO) 6.6 X 10^3 (1.8-7.8); NEUTROPHILS % (AUTO) 64 % (42-75); PLATELET COUNT 208 10^3/uL (130-400); WHITE BLOOD COUNT 10.2 10^3/uL (4.3-11.0)
[2019-06-06 06:16] LABS: ALANINE AMINOTRANSFERASE 11 U/L (0-55); ALBUMIN 3.6 GM/DL (3.2-4.5); ALKALINE PHOSPHATASE 65 U/L (40-136); BILIRUBIN,TOTAL 0.6 MG/DL (0.1-1.0); BUN/CREATININE RATIO 9; CALCIUM 8.5 MG/DL (8.5-10.1); CARBON DIOXIDE 24 MMOL/L (21-32); CHLORIDE 107 MMOL/L (98-107); CREATININE SERUM 0.75 MG/DL (0.60-1.30); GFR ESTIMATED > 60; GLUCOSE 97 MG/DL (70-105); POTASSIUM 3.7 MMOL/L (3.6-5.0); SODIUM 138 MMOL/L (135-145); TOTAL PROTEIN 6.1 GM/DL (6.4-8.2)
--- NOTE | 2019-06-06 06:58 | NUR ---
DR. MIMS NOTIFIED OF PATIENT CONSULT.
[2019-06-06 08:00] VITALS: BP 125/61
[2019-06-06] MEDS: NS IV 1000 ML 1,000 ML IV SCH (08:05)
--- NOTE | 2019-06-06 08:40 | Progress Note ---
Standard Progress Note Progress Notes/Assess & Plan Date Seen by a Provider: Jun 06, 2019 Time Seen by a Provider: 08:30 Progress/Assessment & Plan ENT-Tristian Patent seen and e valuated\ full note dictated-probable MRSA VAnco is a g reat choce for antibiotics diodnt see any abscess that I coudl drain but it is tender-prob will need 48 of IV antibiotics inpatient and then may need to go home with outpt IV antibx for at least a week he has lots of drug allergies so choices of oral antiboitcs is limited' Final Diagnosis nasal cellulitis-prob MRsa MICAH MIMS MD Jun 06, 2019 08:40
[2019-06-06] MEDS ORDERED: MUPIROCIN 2% OINT 22 GM (BACTROBAN) TUBE TOP SCH (09:00)
[2019-06-06] MEDS ORDERED: VANCOMYCIN INJECTION 1,000 MG in NS (IVPB) 250 ML IV SCH ×2 (09:00→19:00)
[2019-06-06] MEDS ORDERED: CEPH-507 PO (09:18)
[2019-06-06] MEDS ORDERED: SULF1TAB35 PO (09:18)
--- NOTE | 2019-06-06 09:18 | NUR ---
PATIENT STATES HE DOES NOT TAKE ANY MEDICATIONS. HE DID HAVE TWO ANTIBIOTICS, BACTRIM AND KEFLEX, CALLED INTO [facility] ON 06-04-19. HE STATES HE HAS NOT BEEN ABLE TO PICK THEM UP YET. 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
--- NOTE | 2019-06-06 09:41 | CONSULTATION REPORT ---
DATE OF SERVICE: ENT CONSULT ROOM: 416. REFERRING PHYSICIAN: Rylan Reyes MD REASON FOR CONSULTATION: Nasal cellulitis. HISTORY OF PRESENT ILLNESS: The patient is a 33-year-old male who was admitted to the floor from the emergency room last evening. He has symptoms of a worsening nasal cellulitis. These symptoms have been progressive over the past several days. He complains of extreme pain on the right side. He has received vancomycin as well as Rocephin. ALLERGIES: INCLUDE PENICILLIN AND SULFA. CURRENT MEDICATIONS: Includes Rocephin, vancomycin, and fentanyl as needed for pain. PHYSICAL EXAMINATION: GENERAL: He is in no acute distress. He is lying in bed. In general his speech and voice are normal. FACE: He has a swollen right tip of the nose. The nose is tender to palpation up along the nasal dorsum and exquisitely tender along the nasal tip on the right, left side not so much. There is no extension of the infection into the cheek or the upper alveolar ridge. Intranasally there is minimal drainage seen on the right side today. There is no abscess, which I could drain, left side was clear. The oral cavity showed missing upper teeth. He had no swelling along the alveolar ridge on the right. Oral cavity was clear otherwise. Pharynx no mass or ulceration was seen. Larynx good airway present. No stridor noted. NECK: There is no adenopathy palpable in the neck. ASSESSMENT: Right nasal tip cellulitis -- probable Methicillin-resistant Staphylococcus aureus. RECOMMENDATIONS: Findings were discussed with the patient and vancomycin is a great choice for the antibiotics, especially given his allergy profile. There is not much in the way that he can take as an outpatient orally. He probably will need 48 hours of IV antibiotics. We will see if this evolved into an abscess or slowly begin to resolve. If it is not then in the operating room, we can open up the area hopefully we will begin to resolve with the vancomycin. In addition, I ordered Bactroban to be applied to the external surface of the nose and intranasally twice a day. I will be back past on morning to see how he is getting along and see if there has been any improvement. Job ID: [id number] DocumentID: [id number] Dictated Date: 06/06/2019 08:53:40 Oncology Registrar Date: 06/06/2019 09:40:52 Dictated By: MICAH MIMS MD
[2019-06-06] MEDS ORDERED: LINE600T5 PO (10:53)
[2019-06-06] MEDS ORDERED: MUPI22OI2 TOP (10:53)
[2019-06-06] MEDS ORDERED: LINEZOLID (ZYVOX) 600 MG TAB PO ONE (11:00)
--- NOTE | 2019-06-06 11:43 | History & Physical-Hospitalist ---
BIN MAURO, 06/06/19 1143: History of Present Illness HPI/Chief Complaint CC: swollen nose HPI: Pt presented to the [facility] ER regarding a swollen nose. It causes him severe pain, rating it a 10/10 on the pain scale. Worsened yesterday with warm co mpresses. Eyes are swollen. Nothing improves the pain. No expression of pus noted. Eyes are watering. Denies filling previous abx prescription for infection. Source: patient Exam Limitations: no limitations Date Seen 06/06/19 Time Seen by a Provider: 08:25 Attending Physician Ade Gomez DO [facility] Referring Physician Date of Admission Jun 05, 2019 at 21:09 Home Medications & Allergies Home Medications Reviewed patient Home Medication Reconciliation performed by pharmacy medication reconciliations research laboratory technician and/or nursing. Patients Allergies have been reviewed. 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 Alcohol Use: Denies Use Drug of Choice: METHAMPHETAMINES, MARIJUANA--DENIES IV USE Smoking Status: Heavy Tobacco Smoker (30 pack year history) Cigaretts per day: 30 Type Used: Cigarettes 2nd Hand Smoke Exposure: Yes Recent Foreign Travel: No Contact w/other who traveled: No Recent Hopitalizations: No Recent Infectious Disease Expo: No Immunizations Up To Date Tetanus Booster (TDap): Less than 5yrs Seasonal Allergies Seasonal Allergies: No Past Medical History Surgeries: Abdominal Musculoskeletal: Fractures Right shoulder injury History of Blood Disorders: No Family History Asthma 19 FATHER FH: COPD (chronic obstructive pulmonary disease) 19 FATHER Hypertension 19 FATHER Seizure disorder 19 MOTHER No Pertinent Family Hx, Heart Disease (father), Cancer (paternal GM skin, paternal GP brain), Hypertension (mother also) Review of Systems Constitutional: No chills, No fever EENTM: nose pain; No ear pain, No throat pain Respiratory: no symptoms reported Cardiovascular: no symptoms reported Gastrointestinal: no symptoms reported Genitourinary: no symptoms reported Musculoskeletal: muscle pain (R shoulder injury) Skin: no symptoms reported Psychiatric/Neurological: Headache All Other Systems Reviewed Negative Unless Noted: Yes Physical Exam Physical Exam Vital Signs Vital Signs - First Documented 06/05/19 18:08 Temp 97.6 Pulse 88 Resp 16 B/P (MAP) 141/113 (122) Pulse Ox 98 O2 Delivery Room Air Capillary Refill : Less Than 3 Seconds Height, Weight, BMI Height: 5'10.00" Weight: 138lbs. 6.0oz. 62.579210mr; 19.9 BMI Method:Stated General Appearance: No Apparent Distress HEENT: Pharynx Normal, Moist Mucous Membranes; No Pharyngeal Erythema; Other (inflamed right nostril and surrounding internal cartilages) Respiratory: Chest Non Tender, Wheezing Cardiovascular: Regular Rate, Rhythm, No Edema Gastrointestinal: Normal Bowel Sounds, Non Tender; No Guarding Extremity: No Pedal Edema Neurologic/Psychiatric: Alert, Oriented x3 Skin: Normal Color, Warm/Dry Results Results/Procedures Labs Laboratory Tests 06/05/19 07:00 06/06/19 05:25 Patient resulted labs reviewed. Assessment/Plan Admission Diagnosis Cellulitis of nose Assessment and Plan Assessment: 1. Cellulitis of nose 2. MRSA infection 3. Lifelong smoker 4. Thickened nasal septum d/t multiple nose fractures Plan: 1. Continue Vancomycin 1g QD IV 2. Continue Ceftriaxone 1g QD IV 3. Dr. Lubin consult -- Staph infection and will not drain 4. Add mupirocin ointment BID for inside and outside of nose 5. 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 Dr. Lubin was consulted, evaluated the Pt to have no area in need of incision and drainage so he was deemed stable from a discharge standpoint since he had received IV antibiotics to saturate the soft tissue and MRSA was presumed Zyvox sent in to [facility] for 10 days and close follow-up with [facility] was obtained. 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 Smoking Status: Heavy Tobacco Smoker (30 pack year history) Family History Asthma 19 FATHER FH: COPD (chronic obstructive pulmonary disease) 19 FATHER Hypertension 19 FATHER Seizure disorder 19 MOTHER Assessment/Plan Admission Diagnosis Assessment: Cellulitis of the nose Meth user Smoker Plan: Zyvox Bactroban Admission Status: Observation Supervisory-Addendum Brief Verification & Attestation Participated in pt care: history, MDM, physical Personally performed: exam, history, MDM, supervision of care Care discussed with: Medical Student Procedures: n/a Results interpretation: Verified all documentation Verification and Attestation of Medical Student E/M Service A medical student performed and documented this service in my presence. I reviewed and verified all information documented by the medical student and made modifications to such information, when appropriate. I personally performed the physical exam and medical decision making. Ade Gomez, Jun 06, 2019,21:34 BIN MAURO, Jun 06, 2019 11:43 ADE GOMEZ DO Jun 06, 2019 21:33
[2019-06-06 12:00] VITALS: BP 136/86
[2019-06-06] MEDS ORDERED: cefTRIAXone FOR IV USE 1,000 MG in WATER (STERILE) FOR INJECTION 10 ML IV SCH (19:00)
[2019-06-07] MEDS ORDERED: TROUGH ORDER-PHARMACY XX NR (16:00)
== END 2019-06-06 10:53 | disposition home or self-care (01) ==
LOC: EDUNIT# 18:02 → ER 18:03 → 4TH 21:09 → UNDOADMOB 21:09 → 4TH 22:03 → UNDODISOB 06-06 12:15
PROVIDERS: ADMIT Internal Medicine; ATTEND Internal Medicine
DX: J34.0 Abscess, furuncle and carbuncle of nose (principal); J34.89 Other specified disorders of nose and nasal sinuses; L03.211 Cellulitis of face; H02.846 Edema of left eye, unspecified eyelid; F17.210 Nicotine dependence, cigarettes, uncomplicated; F15.20 Other stimulant dependence, uncomplicated; Z88.2 Allergy status to sulfonamides; Z88.0 Allergy status to penicillin; Z88.8 Allergy status to other drugs, medicaments and biological substances; Z91.013 Allergy to seafood; Z79.899 Other long term (current) drug therapy; Z79.891 Long term (current) use of opiate analgesic; Z83.6 Family history of other diseases of the respiratory system; Z82.49 Family history of ischemic heart disease and other diseases of the circulatory system; Z82.0 Family history of epilepsy and other diseases of the nervous system
CPT/HCPCS: 36415; 80053; 85025; 96361; 96365; 96367; 96375; G0378

== ENCOUNTER 2020-08-22 18:30 | Emergency (ER) | payer SELFPAY ==
[~2020-08-22] VITALS: Ht 180 cm; Wt 61.0 kg
[~2020-08-22 18:30] MED LIST changes: -HYDR-3812 PO; +LINE600T12 PO; +MUPI22OI2 TOP
--- NOTE | 2020-08-22 18:51 | ED Headache ---
General Stated Complaint: HEADACHE Source: patient Exam Limitations: no limitations History of Present Illness Date Seen by Provider: Aug 22, 2020 Time Seen by Provider: 18:49 Initial Comments To ER with reports of a headache. He has a history of migraines but only gets them occasionally. This particular headache started last night and was similar in nature to all of his other headaches. However he still rates the pain at 10 out of 10 anyone go away despite taking Tylenol and Motrin at home. He also has nausea and states the light makes it worse. No fevers chills cough or rhinorrhea. No head trauma. Timing/Duration: 24 hours Severity/Quality: moderate Location: global (review) Associated Symptoms: nausea/vomiting; No stiff neck, No vision changes Allergies and Home Medications Allergies Coded Allergies: Penicillins (Unverified Allergy, Mild, 04/20/09) propoxyphene (Unverified Allergy, Mild, 12/20/09) Sulfa (Sulfonamide Antibiotics) (Verified Allergy, Unknown, 02/23/19) shellfish derived (Unverified Allergy, Unknown, RASH, 02/02/19) FROM UNCODED ALLERGIES Uncoded Allergies: IVORY SOAP (Allergy, Mild, 04/20/09) Home Medications Linezolid 600 Mg Tablet, 600 MG PO BID Prescribed by: BECCA RIZO on 06/06/19 1053 Mupirocin 22 Gm Oint...g., 1 GM TOP BID Prescribed by: BECCA RIZO on 06/06/19 1053 Patient Home Medication List Home Medication List Reviewed: Yes Review of Systems Review of Systems Constitutional: see HPI Eyes: See HPI, Photophobia Ears, Nose, Mouth, Throat: no symptoms reported Respiratory: no symptoms reported Cardiovascular: no symptoms reported Gastrointestinal: nausea Genitourinary: no symptoms reported Musculoskeletal: no symptoms reported Skin: no symptoms reported Psychiatric/Neurological: No Symptoms Reported Past Jqaxufr-Hsedlv-Lsayat Hx Patient Social History Drug of Choice: METHAMPHETAMINES, MARIJUANA--DENIES IV USE Type Used: Cigarettes 2nd Hand Smoke Exposure: Yes Recent Foreign Travel: No Contact w/Someone Who Travel: No Recent Hopitalizations: No Immunizations Up To Date Tetanus Booster (TDap): Less than 5yrs Seasonal Allergies Seasonal Allergies: No Past Medical History Surgeries: Yes (HERNIA REPAIR A CHILD. ) Abdominal Respiratory: No Cardiac: No Neurological: No Genitourinary: No Gastrointestinal: No Musculoskeletal: Yes (numerous fractures including right scapula, right ribs, and right clavicle.) Fractures Endocrine: No HEENT: No Cancer: No Psychosocial: No Integumentary: No Blood Disorders: No Family Medical History Asthma 19 FATHER FH: COPD (chronic obstructive pulmonary disease) 19 FATHER Hypertension 19 FATHER Seizure disorder 19 MOTHER No Pertinent Family Hx, Heart Disease, Cancer, Hypertension Physical Exam Vital Signs Capillary Refill : Height, Weight, BMI Height: 5'10.00" Weight: 138lbs. 6.0oz. 62.342849fo; 19.9 BMI Method:Stated General Appearance: WD/WN, no apparent distress HEENT: PERRL/EOMI, normal ENT inspection Neck: non-tender, full range of motion Respiratory: no respiratory distress, no accessory muscle use Extremities: normal range of motion, non-tender Psychiatric: alert, oriented x 3 Crainal Nerves: normal hearing, normal speech, PERRL Coordination/Gait: normal finger to nose, normal gait Skin: normal color, warm/dry Procedures/Interventions Suture Size: 4-0 Progress/Results/Core Measures Results/Orders My Orders Orders - CARMEN VALDOVINOS APRN Ed Iv/Invasive Line Start (08/22/20 18:48) Ketorolac Injection (Toradol Injection) (08/22/20 19:00) Diphenhydramine Injection (Benadryl Inje (08/22/20 19:00) Prochlorperazine Injection (Compazine In (08/22/20 19:00) Ns Iv 1000 Ml (Sodium Chloride 0.9%) (08/22/20 19:00) Medications Given in ED Current Medications Medications Dose Ordered Sig/Alida Route Start Time Stop Time Status Last Admin Dose Admin Diphenhydramine HCl 25 mg ONCE ONCE IVP 08/22/20 19:00 08/22/20 19:01 DC 08/22/20 19:09 25 MG Ketorolac Tromethamine 15 mg ONCE ONCE IVP 08/22/20 19:00 08/22/20 19:01 DC 08/22/20 19:07 15 MG Prochlorperazine Edisylate 5 mg ONCE ONCE IV 08/22/20 19:00 08/22/20 19:01 DC 08/22/20 19:07 5 MG Departure Communication (Admissions) 2002*-Feeling better at this time. Will DC to home. GCS 15, states hes feeling quite a bit better. Impression Primary Impression: Headache Qualified Codes: R51 - Headache Disposition: 01 HOME, SELF-CARE Condition: Improved Departure-Patient Inst. Decision time for Depature: 19:09 Referrals: [facility] (PCP/Family) Primary Care Physician Patient Instructions: Headache, Adult (DC) Work/School Note: Work Release Form Date Seen in the Emergency Department: Aug 22, 2020 Return to Work: Aug 23, 2020 CARMEN VALDOVINOS APRN Aug 22, 2020 18:51
[2020-08-22 19:00] VITALS: BP 127/89
[2020-08-22] MEDS ORDERED: PROCHLORPERAZINE 10 MG/2ML INJ (COMPAZINE) IV ONE (19:00)
[2020-08-22] MEDS ORDERED: KETOROLAC 30 MG/ML VIAL IVP ONE (19:00)
[2020-08-22] MEDS ORDERED: diphenhydrAMINE 50 MG/ML INJ (BENADRYL) IVP ONE (19:00)
[2020-08-22] MEDS ORDERED: NS IV 1000 ML 1,000 ML IV SCH (19:00)
== END 2020-08-22 20:29 | disposition home or self-care (01) ==
LOC: EDUNIT# 18:30 → ER 18:32
DX: R51.9 Headache, unspecified (principal); Z82.49 Family history of ischemic heart disease and other diseases of the circulatory system; Z77.22 Contact with and (suspected) exposure to environmental tobacco smoke (acute) (chronic); Z88.0 Allergy status to penicillin; Z88.2 Allergy status to sulfonamides; Z88.8 Allergy status to other drugs, medicaments and biological substances

== ENCOUNTER 2021-03-03 21:32 | Emergency (ER) | payer SELFPAY ==
[~2021-03-03] VITALS: Ht 180.3 cm; Wt 61.0 kg
[2021-03-03 21:40] VITALS: BP 115/99
[2021-03-03] MEDS ORDERED: HYDROcodone/APAP 5 MG/325 MG (LORTAB) TAB PO ONE (21:45)
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
--- NOTE | 2021-03-03 22:00 | Diagnostic Imaging Report ---
INDICATION: Pain. Injury. COMPARISON: None. FINDINGS: 2 views of the right clavicle were obtained and show no fractures, dislocations, or other acute bony abnormalities. Old healed clavicle fracture is noted. There is also old healed fracture of the scapula. Joint spaces are well maintained throughout. The soft tissues appear unremarkable. No radiopaque foreign bodies are identified. IMPRESSION: 1. Old healed fractures of the clavicle and scapula. 2. No acute fracture or dislocation. Dictated by: Dictated on workstation # [id number]
--- NOTE | 2021-03-03 22:00 | Diagnostic Imaging Report ---
INDICATION: Pain status post injury COMPARISON: None. FINDINGS: 3 views of the right shoulder were obtained. There is no fracture, dislocation, or other acute bony abnormality identified. The soft tissues appear unremarkable. No radiopaque foreign bodies identified. The visualized portions of the right lung are clear. IMPRESSION: No acute fractures or dislocations of the right shoulder. Dictated by: Dictated on workstation # [id number]
== END 2021-03-03 22:06 | disposition home or self-care (01) ==
LOC: EDUNIT# 21:32 → ER 21:35
DX: M25.511 Pain in right shoulder (principal); Z77.22 Contact with and (suspected) exposure to environmental tobacco smoke (acute) (chronic); Z88.0 Allergy status to penicillin; Z88.2 Allergy status to sulfonamides; Z88.8 Allergy status to other drugs, medicaments and biological substances; Z87.81 Personal history of (healed) traumatic fracture; X58.XXXA Exposure to other specified factors, initial encounter
CPT/HCPCS: 73000; 73030

== ENCOUNTER 2021-09-03 12:49 | Emergency (ER) | payer SELFPAY ==
[~2021-09-03] VITALS: Ht 177.8 cm; Wt 58.7 kg
[~2021-09-03 12:49] MED LIST changes: -SULF1TAB35 PO; +SULF1TAB38 PO
--- NOTE | 2021-09-03 12:59 | ED General ---
General Stated Complaint: SEIZURES Source of Information: Patient Exam Limitations: No Limitations History of Present Illness Date Seen by Provider: Sep 03, 2021 Time Seen by Provider: 12:57 Initial Comments to ER by private vehicle from [facility] where he presented with seizure-like activity. These episodes last about 30 to 45 seconds and he states that he blacks out. He has had 2-3 of these episodes in the past 24 hours There is no twitching or myoclonus. He has a history of this happening in his early adulthood years. These happen more frequently when he stressed out. His girlfriend threatened to leave him earlier this week so he started punching himself in the head. Currently he states that he feels foggy but denies any pain. Timing/Duration: 1-2 Days Severity: Moderate Associated Systoms: Denies Symptoms Allergies and Home Medications Allergies Coded Allergies: Penicillins (Unverified Allergy, Mild, 04/20/09) propoxyphene (Unverified Allergy, Mild, 12/20/09) Sulfa (Sulfonamide Antibiotics) (Verified Allergy, Unknown, 02/23/19) shellfish derived (Unverified Allergy, Unknown, RASH, 02/02/19) FROM UNCODED ALLERGIES Uncoded Allergies: IVORY SOAP (Allergy, Mild, 04/20/09) Patient Home Medication List Home Medication List Reviewed: Yes Linezolid (Zyvox) 600 Mg Tablet, 600 MG PO BID Prescribed by: BECCA RIZO on 06/06/19 1053 Mupirocin (Mupirocin) 22 Gm Oint...g., 1 GM TOP BID Prescribed by: BECCA RIZO on 06/06/19 1053 Review of Systems Review of Systems Constitutional: see HPI; No chills, No fever EENTM: see HPI Respiratory: no symptoms reported Cardiovascular: no symptoms reported Genitourinary: no symptoms reported Musculoskeletal: no symptoms reported Skin: no symptoms reported Psychiatric/Neurological: See HPI Hematologic/Lymphatic: No Symptoms Reported Immunological/Allergic: no symptoms reported Past Tjwlbir-Tdfsrv-Xrdokz Hx Immunizations Up To Date Tetanus Booster (TDap): Less than 5yrs Seasonal Allergies Seasonal Allergies: No Past Medical History Surgeries: Yes (HERNIA REPAIR A CHILD. ) Abdominal Respiratory: No Cardiac: No Neurological: No Genitourinary: No Gastrointestinal: No Musculoskeletal: Yes (numerous fractures including right scapula, right ribs, and right clavicle.) Fractures Endocrine: No HEENT: No Cancer: No Psychosocial: No Integumentary: No Blood Disorders: No Family Medical History Asthma 19 FATHER FH: COPD (chronic obstructive pulmonary disease) 19 FATHER Hypertension 19 FATHER Seizure disorder 19 MOTHER No Pertinent Family Hx, Heart Disease, Cancer, Hypertension Physical Exam Vital Signs Vital Signs - First Documented 09/03/21 12:54 Temp 36.8 Pulse 54 Resp 16 B/P (MAP) 127/89 (102) Pulse Ox 100 O2 Delivery Room Air Capillary Refill : Height, Weight, BMI Height: 5'10.00" Weight: 138lbs. 6.0oz. 62.230076vi; 18.00 BMI Method:Stated General Appearance: No Apparent Distress, WD/WN Eyes: Bilateral Eye Normal Inspection, Bilateral Eye PERRL, Bilateral Eye EOMI HEENT: PERRL/EOMI, TMs Normal Neck: Full Range of Motion, Normal Inspection Respiratory: No Accessory Muscle Use, No Respiratory Distress Cardiovascular: Regular Rate, Rhythm, Normal Peripheral Pulses Gastrointestinal: Normal Bowel Sounds, Non Tender, Soft Extremity: Normal Capillary Refill, Normal Inspection Neurologic/Psychiatric: Alert, Oriented x3 Skin: Normal Color, Warm/Dry Procedures/Interventions Suture Size: 4-0 Progress/Results/Core Measures Suspected Sepsis SIRS Temperature: Pulse: Respiratory Rate: Laboratory Tests 09/03/21 13:04: White Blood Count 6.4 Blood Pressure / Mean: Laboratory Tests 09/03/21 13:04: Creatinine 0.93, Platelet Count 237, Total Bilirubin 0.8 Results/Orders Lab Results Laboratory Tests Test 09/03/21 13:04 09/03/21 13:55 Range/Units White Blood Count 6.4 4.3-11.0 10^3/uL Red Blood Count 5.20 4.30-5.52 10^6/uL Hemoglobin 15.7 13.3-17.7 g/dL Hematocrit 46 40-54 % Mean Corpuscular Volume 88 80-99 fL Mean Corpuscular Hemoglobin 30 25-34 pg Mean Corpuscular Hemoglobin Concent 34 32-36 g/dL Red Cell Distribution Width 12.3 10.0-14.5 % Platelet Count 237 130-400 10^3/uL Mean Platelet Volume 9.8 9.0-12.2 fL Immature Granulocyte % (Auto) 0 % Neutrophils (%) (Auto) 49 42-75 % Lymphocytes (%) (Auto) 40 12-44 % Monocytes (%) (Auto) 8 0-12 % Eosinophils (%) (Auto) 2 0-10 % Basophils (%) (Auto) 1 0-10 % Neutrophils # (Auto) 3.1 1.8-7.8 10^3/uL Lymphocytes # (Auto) 2.6 1.0-4.0 10^3/uL Monocytes # (Auto) 0.5 0.0-1.0 10^3/uL Eosinophils # (Auto) 0.1 0.0-0.3 10^3/uL Basophils # (Auto) 0.1 0.0-0.1 10^3/uL Immature Granulocyte # (Auto) 0.0 0.0-0.1 10^3/uL Sodium Level 136 135-145 MMOL/L Potassium Level 4.7 3.6-5.0 MMOL/L Chloride Level 108 H 98-107 MMOL/L Carbon Dioxide Level 16 L 21-32 MMOL/L Anion Gap 12 5-14 MMOL/L Blood Urea Nitrogen 8 7-18 MG/DL Creatinine 0.93 0.60-1.30 MG/DL Estimat Glomerular Filtration Rate 92 BUN/Creatinine Ratio 9 Glucose Level 107 H 70-105 MG/DL Calcium Level 8.9 8.5-10.1 MG/DL Corrected Calcium 8.6 8.5-10.1 MG/DL Total Bilirubin 0.8 0.1-1.0 MG/DL Aspartate Amino Transf (AST/SGOT) 29 5-34 U/L Alanine Aminotransferase (ALT/SGPT) 18 0-55 U/L Alkaline Phosphatase 61 40-136 U/L Total Protein 7.2 6.4-8.2 GM/DL Albumin 4.4 3.2-4.5 GM/DL Serum Alcohol < 10 <10 MG/DL Urine Color YELLOW Urine Clarity CLEAR Urine pH 5.5 5-9 Urine Specific [place] <=1.005 1.016-1.022 Urine Protein NEGATIVE NEGATIVE Urine Glucose (UA) NEGATIVE NEGATIVE Urine Ketones NEGATIVE NEGATIVE Urine Nitrite NEGATIVE NEGATIVE Urine Bilirubin NEGATIVE NEGATIVE Urine Urobilinogen 0.2 < = 1.0 MG/DL Urine Leukocyte Esterase NEGATIVE NEGATIVE Urine RBC (Auto) NEGATIVE NEGATIVE Urine RBC NONE /HPF Urine WBC NONE /HPF Urine Squamous Epithelial Cells 0-2 /HPF Urine Crystals NONE /LPF Urine Bacteria NEGATIVE /HPF Urine Casts NONE /LPF Urine Mucus NEGATIVE /LPF Urine Culture Indicated NO Urine Opiates Screen NEGATIVE NEGATIVE Urine Oxycodone Screen NEGATIVE NEGATIVE Urine Methadone Screen NEGATIVE NEGATIVE Urine Propoxyphene Screen NEGATIVE NEGATIVE Urine Barbiturates Screen NEGATIVE NEGATIVE Ur Tricyclic Antidepressants Screen NEGATIVE NEGATIVE Urine Phencyclidine Screen NEGATIVE NEGATIVE Urine Amphetamines Screen NEGATIVE NEGATIVE Urine Methamphetamines Screen NEGATIVE NEGATIVE Urine Benzodiazepines Screen NEGATIVE NEGATIVE Urine Cocaine Screen NEGATIVE NEGATIVE Urine Cannabinoids Screen POSITIVE H NEGATIVE My Orders Orders - CARMEN VALDOVINOS APRN Cbc With Automated Diff (09/03/21 12:52) Comprehensive Metabolic Panel (09/03/21 12:52) Alcohol (09/03/21 12:52) Ua Culture If Indicated (09/03/21 12:52) Drug Screen Stat (Urine) (09/03/21 12:52) Ct Head Wo (09/03/21 12:52) Ekg Tracing (09/03/21 13:51) Vital Signs/I&O 09/03/21 12:54 Temp 36.8 Pulse 54 Resp 16 B/P (MAP) 127/89 (102) Pulse Ox 100 O2 Delivery Room Air Capillary Refill : Departure Communication (Admissions) Family Conversation 1406-EKG rate [address] segment changes no ectopy NAME: KERRIE GUNTER [facility] REC#: [id number] PT STATUS: REG ER : 1985 PHYSICIAN: CARMEN VALDOVINOS APRN ADMIT DATE: 09/03/21/ER Draft Date of Exam:09/03/21 CT HEAD WO EXAMINATION: CT head without contrast. TECHNIQUE: Multiple contiguous axial images were obtained through the brain without the use of intravenous contrast. All CT scans use one or more of the following dose optimizing techniques: automated exposure control, MA and/or KvP adjustment based on patient size and exam type or iterative reconstruction. HISTORY: seizures COMPARISON: 02/12/2019. FINDINGS: The ventricles and sulci are normal. No abnormal attenuation of brain parenchyma is present. No acute intracranial hemorrhage or abnormal extra-axial fluid collections are present. No hyperdense vessel. The calvarium is intact. The mastoid air cells are clear. Mucosal thickening of the ethmoid and sphenoid sinuses. The orbits are normal. IMPRESSION: 1. No acute intracranial abnormality. Dictated on workstation # [id number] Dict: 09/03/21 1344 Trans: 09/03/21 1349 [id number] [id number] Interpreted by: LEONIDAS SCHULTZ DO Electronically signed by: Impression Primary Impression: Stress at home Additional Impression: Syncopal episodes Disposition: HOME, SELF-CARE Condition: Stable Departure-Patient Inst. Decision time for Depature: 14:19 Referrals: [facility] (PCP/Family) Primary Care Physician Patient Instructions: Stress Add. Discharge Instructions: 1. Return to ER for any concern 2. Follow-up with your doctor next week CARMEN VALDOVINOS [employer] Sep 03, 2021 12:59
[2021-09-03 13:11] LABS: BASOPHILS # (AUTO) 0.1 10^3/uL (0.0-0.1); BASOPHILS % (AUTO) 1 % (0-10); EOSINOPHILS # (AUTO) 0.1 10^3/uL (0.0-0.3); EOSINOPHILS % (AUTO) 2 % (0-10); HEMATOCRIT 46 % (40-54); HEMOGLOBIN 15.7 g/dL (13.3-17.7); LYMPHOCYTES # (AUTO) 2.6 10^3/uL (1.0-4.0); LYMPHOCYTES % (AUTO) 40 % (12-44); MEAN CORPUSCULAR HEMOGLOBIN 30 pg (25-34); MEAN CORPUSCULAR HGB CONC 34 g/dL (32-36); MEAN CORPUSCULAR VOLUME 88 fL (80-99); MEAN PLATELET VOLUME 9.8 fL (9.0-12.2); MONOCYTES # (AUTO) 0.5 10^3/uL (0.0-1.0); MONOCYTES % (AUTO) 8 % (0-12); NEUTROPHILS # (AUTO) 3.1 10^3/uL (1.8-7.8); NEUTROPHILS % (AUTO) 49 % (42-75); PLATELET COUNT 237 10^3/uL (130-400); WHITE BLOOD COUNT 6.4 10^3/uL (4.3-11.0)
[2021-09-03 13:25] LABS: ALBUMIN 4.4 GM/DL (3.2-4.5); CHLORIDE 108 MMOL/L (98-107); POTASSIUM 4.7 MMOL/L (3.6-5.0); SODIUM 136 MMOL/L (135-145)
[2021-09-03 13:27] LABS: CALCIUM 8.9 MG/DL (8.5-10.1)
[2021-09-03 13:28] LABS: GLUCOSE 107 MG/DL (70-105); TOTAL PROTEIN 7.2 GM/DL (6.4-8.2)
[2021-09-03 13:29] LABS: CARBON DIOXIDE 16 MMOL/L (21-32)
[2021-09-03 13:30] LABS: BILIRUBIN,TOTAL 0.8 MG/DL (0.1-1.0)
[2021-09-03 13:31] LABS: ALKALINE PHOSPHATASE 61 U/L (40-136)
[2021-09-03 13:32] LABS: CREATININE SERUM 0.93 MG/DL (0.60-1.30); GFR ESTIMATED 92
[2021-09-03 13:33] LABS: BUN/CREATININE RATIO 9
[2021-09-03 13:35] LABS: ALANINE AMINOTRANSFERASE 18 U/L (0-55)
--- NOTE | 2021-09-03 13:49 | Diagnostic Imaging Report ---
EXAMINATION: CT head without contrast. TECHNIQUE: Multiple contiguous axial images were obtained through the brain without the use of intravenous contrast. All CT scans use one or more of the following dose optimizing techniques: automated exposure control, MA and/or KvP adjustment based on patient size and exam type or iterative reconstruction. HISTORY: seizures COMPARISON: 02/12/2019. FINDINGS: The ventricles and sulci are normal. No abnormal attenuation of brain parenchyma is present. No acute intracranial hemorrhage or abnormal extra-axial fluid collections are present. No hyperdense vessel. The calvarium is intact. The mastoid air cells are clear. Mucosal thickening of the ethmoid and sphenoid sinuses. The orbits are normal. IMPRESSION: 1. No acute intracranial abnormality. Dictated by: Dictated on workstation # [id number]
[2021-09-03 14:05] LABS: BILIRUBIN,URINE NEGATIVE (NEGATIVE); CLARITY,URINE CLEAR; COLOR,URINE YELLOW; GLUCOSE, URINE (UA) NEGATIVE (NEGATIVE); KETONES,URINE NEGATIVE (NEGATIVE); LEUKOCYTE ESTERASE ,URINE NEGATIVE (NEGATIVE); NITRITE,URINE NEGATIVE (NEGATIVE); PH,URINE 5.5 (5-9); PROTEIN,URINE NEGATIVE (NEGATIVE)
[2021-09-03 14:12] LABS: BACTERIA,URINE NEGATIVE /HPF; SQUAMOUS EPITHELIAL CELL,UR 0-2 /HPF
[2021-09-03 14:16] LABS: AMPHETAMINE SCREEN, URINE NEGATIVE (NEGATIVE); BARBITURATE SCREEN URINE NEGATIVE (NEGATIVE); BENZODIAZEPINES SCREEN URINE NEGATIVE (NEGATIVE); CANNABINOID SCREEN, URINE POSITIVE (NEGATIVE); COCAINE SCREEN URINE NEGATIVE (NEGATIVE); METHADONE STAT NEGATIVE (NEGATIVE); METHAMPHETAMINE SCREEN URINE S NEGATIVE (NEGATIVE); OPIATE SCREEN URINE NEGATIVE (NEGATIVE); OXYCODONE STAT NEGATIVE (NEGATIVE); PROPOXYPHENE STAT NEGATIVE (NEGATIVE); TRICYCLIC ANTIDEPRESSANTS SCRE NEGATIVE (NEGATIVE)
[2021-09-03 14:27] VITALS: BP 116/77
== END 2021-09-03 14:26 | disposition home or self-care (01) ==
LOC: EDUNIT# 12:49 → ER 12:51
DX: F43.9 Reaction to severe stress, unspecified (principal); R55 Syncope and collapse
CPT/HCPCS: 70450; 80053; 80306; 81000; 85025; 93005; 99284; G0480; 36415; 80320